=== PATIENT | female | born 1985 ===

== ENCOUNTER 2016-11-07 20:42 | Observation (INO) | payer MEDICAID ==
[~2016-11-07] VITALS: Ht 162.6 cm; Wt 110.0 kg
[2016-11-07 21:24] LABS: BASOPHILS 0.3 % (0.0-2.0); EOSINOPHILS 2.1 % (0-7); HEMATOCRIT 41.8 % (36.0-48.0); HEMOGLOBIN 14.1 g/dL (12-16); IMMATURE GRANULOCYTES 0.3 % (0-5); LYMPHOCYTES 34.8 % (15-50); MCH 29.4 pg (26.0-34.0); MCHC 33.7 g/dL (31.0-37.0); MCV 87.3 fL (80.0-100.0); MEAN PLATELET VOLUME 9.9 fL (7.4-10.4); MONOCYTES 5.2 % (2-11); NEUTROPHILS 57.3 % (40-80); PLATELET COUNT 341 10x3/uL (130-400); RBC 4.79 10x6/uL (4.00-5.40); RDW 14.2 % (11.5-14.5); WBC 14.7 10x3/uL (4.8-10.8)
[2016-11-07 21:36] LABS: ALBUMIN 3.7 g/dL (3.4-5.0); BILIRUBIN - TOTAL 0.15 mg/dL (0.2-1.3); CALCIUM 8.7 mg/dL (8.5-10.1); CARBON DIOXIDE 24.5 mmol/L (21.0-32.0); CREATININE - SERUM 1.1 mg/dL (0.6-1.3); POTASSIUM - SERUM 3.5 mmol/L (3.5-5.1); PROTEIN - SERUM 7.7 g/dL (6.4-8.2)
[2016-11-07 23:06] LABS: APPEARANCE CLEAR (CLEAR); BILIRUBIN NEGATIVE (NEGATIVE); COLOR STRAW (YELLOW); EPITHELIAL CELLS 0-5 /hpf (0-5); GLUCOSE 100 mg/dL (NEGATIVE); KETONE NEGATIVE (NEGATIVE); LEUKOCYTE ESTERASE TRACE (NEGATIVE); NITRITE NEGATIVE (NEGATIVE); PROTEIN NEGATIVE (NEGATIVE); RED CELLS - URINE OCC /hpf (0-5); UROBILINOGEN NORMAL (NORMAL)
[2016-11-07 23:07] LABS: HCG SERUM NEGATIVE (NEGATIVE)
[2016-11-07 23:07] LABS: BACTERIA FEW /hpf (NONE SEEN)
[2016-11-07 23:08] LABS: UDS - AMPHET NEGATIVE QUAL (NEGATIVE); UDS - BARB NEGATIVE QUAL (NEGATIVE); UDS - BENZO NEGATIVE QUAL (NEGATIVE); UDS - COCAINE NEGATIVE QUAL (NEGATIVE); UDS - METH NEGATIVE QUAL (NEGATIVE); UDS - OPIATE NEGATIVE QUAL (NEGATIVE); UDS - PCP NEGATIVE QUAL (NEGATIVE); UDS - THC NEGATIVE QUAL (NEGATIVE)
[2016-11-08] VITALS (25 sets, daily range): BP systolic 87–120; BP diastolic 52–80; Ht 162.6 cm; Wt 110.0 kg
[2016-11-08 02:02] LABS: CKMB 1.4 U/L (0.0-3.6); CREATINE KINASE 81 UL (21-215); TROPONIN-I < 0.017 ng/mL (0.000-0.060)
[2016-11-08] MEDS ORDERED: HYDROXYZINE HCL50 MG PO (03:49)
[2016-11-08] MEDS ORDERED: PAXIL40 MG PO (03:50)
[2016-11-08] MEDS ORDERED: AMBIEN10 MG PO (03:50)
--- NOTE | 2016-11-08 04:00 | NUR ---
0400: Pt states she and her boyfreind had a fight and she was suicidal at that time, but is not suicidal and does not want to harm herself or others at this time. Pt agrees to tell nurse/staff if this changes.
[2016-11-08 05:30] LABS: CKMB 1.4 U/L (0.0-3.6); CREATINE KINASE 81 UL (21-215)
[2016-11-08 05:37] LABS: TROPONIN-I < 0.017 ng/mL (0.000-0.060)
--- NOTE | 2016-11-08 06:00 | NUR ---
0600: Pt resting with eyes closed at this time. Pt is SB 55 bpm on CM with SBP 90's. Easily arousable to verbal and follows all commands. Pt is calm and cooperative.
--- NOTE | 2016-11-08 06:04 | NUR ---
0347: Pt rec'd from ER via STR and placed in room 2304. All monitors and alarms established.
--- NOTE | 2016-11-08 08:46 | NUR ---
UP IN BED AWAKE AT THIS TIME. NO ACUTE DISTRESS NOTED. PT DENIES ANY SUICIDAL IDEATION. PT TOILETS VIA BEDSIDE TOILET, INDEPENDENTLY. WILL CONTINUE PLAN OF CARE.
[2016-11-08 09:08] LABS: T4 THYROXINE 6.5 ug/dL (4.7-13.3); THYROID STIMULATING HORMONE 4.76 uIU/mL (0.36-3.74)
--- NOTE | 2016-11-08 11:07 | HP ---
PATIENT: DONY SEYMOUR MEDICAL RECORD: [id number] ACCOUNT: [id number] LOCATION:[facility] : 86 ADMISSION DATE: 11/08/16 HISTORY AND PHYSICAL EXAMINATION DATE OF ADMISSION: 11/08/2016 CHIEF COMPLAINT: Intentional overdose. HISTORY OF PRESENT ILLNESS: The patient is a 31-year-old obese female, who states that she and her boyfriend got into an argument yesterday, begun fighting. Apparently, the boyfriend left. The patient states she intentionally ingested approximately 39 hydroxyzine ____ mg once a day. Apparently, boyfriend called the patient's parents. The patient's parents called the EMS. The patient presented to the Emergency Room, it was felt the patient needed admission. PAST MEDICAL HISTORY: Significant that she has had history of depression, bipolar. Also, she is a . FAMILY HISTORY: The patient states that her mother had of ovarian cancer at 41. Father of flood. Siblings apparently are healthy. ALLERGIES: She has no known drug allergies. SOCIAL HISTORY: Apparently, [place] [facility] [place] is currently unemployed, apparently serving at [employer] for ____. 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 MEDICATIONS: Include Paxil 20 mg 1 p.o. q. day, hydroxyzine 50 mg t.i.d., Ambien 10 mg p.o. q.h.s. HABITS: The patient states she is a 1 pack per day smoker, occasional alcoholic beverage. REVIEW OF SYSTEMS: CONSTITUTIONAL: She denies any headaches, seizures, or syncope. Denies change in visual or auditory acuity. PULMONARY: She denies any shortness of breath, cough, congestion, history of TB, asthma or bronchitis. CARDIOVASCULAR: No chest pain, palpitation, PND or orthopnea. GASTROINTESTINAL: No chronic nausea, vomiting, melena or hematochezia. GENITOURINARY: No urgency, frequency, or dysuria. PHYSICAL EXAMINATION: GENERAL: The patient is a morbidly obese female, whose BMI is 34.3. VITAL SIGNS: In the Emergency Room, her temperature is 97, her pulse 107, respirations were 15 nonlabored, blood pressure 103/59. HEENT: Unremarkable. NECK: Supple. There is no adenopathy. HEART: Has a regular rhythm. No murmurs, gallops or rubs. LUNGS: Clear. ABDOMEN: Soft, bowel sounds positive. No organomegaly. ASSESSMENT: Intentional overdose, suicide attempt, history of depression, HISTORY AND PHYSICAL [id number] DONY SEYMOUR. PLAN: The patient is admitted to ICU. IV hydration. We will continue to monitor telemetry. The patient will need psychiatric consultation and will need inpatient psychiatric rehabilitation. TRANSINT:[id number] Voice Confirmation ID: [id number] DOCUMENT ID: [id number] SAEED NAIK MD at 1107 CC: [id number] DICTATION DATE: 11/08/16 0840 SIDE DOOR WORKER: 11/08/16 1024 ADM IN [place] [id number] [place] [id number]
[2016-11-08 11:37] LABS: CKMB 1.4 U/L (0.0-3.6); CREATINE KINASE 85 UL (21-215); TROPONIN-I < 0.017 ng/mL (0.000-0.060)
--- NOTE | 2016-11-08 12:56 | NUR ---
NOTED PT COMPLAINT OF HEADACHE AND REQUESTS SOMETHING FOR THE DISCOMFORT. CALLED DR NAIK OFFICE TO SEE IF CAN RECIEVE FURTHER ORDERS. OFFICE PAGED PHYSICIAN. WAITING FOR CALLBACK.
--- NOTE | 2016-11-08 13:33 | NUR ---
UP IN BED AT THIS TIME. NO ACUTE DISTRESS NOTED. PT ABLE TO STATE NEEDS. WILL CONTINUE PLAN OF CARE.
--- NOTE | 2016-11-08 14:08 | NUR ---
SPOKE WITH DR NAIK ABOUT PT COMPLAINT OF HEADACHE REQUESTING IUBPROFEIN. NOTED NEW ORDER OF TYLENOL 650MG Q4H PRN. WILL PLACE ORDERS.
--- NOTE | 2016-11-08 15:24 | NUR ---
LYING IN BED RESTING AT THIS TIME. RESPIRATIONS AT STEADY AND UNLABORED RATE. AWAKENS EASILY WHEN STAFF STATES PT NAME. NO ACUTE DISTRESS NOTED. WILL CONTINUE PLAN OF CARE.
--- NOTE | 2016-11-08 17:21 | NUR ---
UP IN BED EATING SUPPER AT THIS TIME. ALYSE ANY NEEDS. WILL CONTINUE PLAN OF CARE.
--- NOTE | 2016-11-08 19:24 | NUR ---
REPORT RECIEVED. ASSESSMENT COMPLETE PER FLOW SHEET. VSS. WILL CONTINUE TO MONITOR.
--- NOTE | 2016-11-08 21:16 | NUR ---
NO VISITORS AT THIS TIME. VSS. NO NEW CHANGES WILL CONTINUE TO MONITOR.
--- NOTE | 2016-11-08 23:21 | NUR ---
REPORT RECIEVED. ASSESSMENT COMPELTE EPR FLOW SHEET. VSS. NO NEW CHANGES. WILL CONTINUE TO MONITOR.
[2016-11-09] VITALS (9 sets, daily range): BP systolic 94–125; BP diastolic 53–82
--- NOTE | 2016-11-09 03:37 | NUR ---
REASSESSMENT COMPLETE PER FLOW SHEET. VSS. NO NEW CHANGES WILL CONTINUE TO MONITOR.
[2016-11-09 05:14] LABS: BASOPHILS 0.3 % (0.0-2.0); EOSINOPHILS 3.1 % (0-7); HEMATOCRIT 38.5 % (36.0-48.0); HEMOGLOBIN 12.8 g/dL (12-16); IMMATURE GRANULOCYTES 0.2 % (0-5); LYMPHOCYTES 41.8 % (15-50); MCH 29.2 pg (26.0-34.0); MCHC 33.2 g/dL (31.0-37.0); MCV 87.7 fL (80.0-100.0); MEAN PLATELET VOLUME 9.2 fL (7.4-10.4); NEUTROPHILS 47.6 % (40-80); RBC 4.39 10x6/uL (4.00-5.40); RDW 14.5 % (11.5-14.5)
[2016-11-09 05:17] LABS: PLATELET COUNT 271 10x3/uL (130-400); WBC 9.1 10x3/uL (4.8-10.8)
[2016-11-09 05:29] LABS: CALC OSMOLALITY 281 mosm/kg (275-300); CALCIUM 7.7 mg/dL (8.5-10.1); CHLORIDE - SERUM 110 mmol/L (98-107); CREATININE - SERUM 0.9 mg/dL (0.6-1.3); GLUCOSE 85 mg/dL (74-106); POTASSIUM - SERUM 3.8 mmol/L (3.5-5.1); SODIUM 143 mmol/L (136-145); UREA NITROGEN 8 mg/dL (7-18); eGFR NON AFRICAN AMERICAN 78 mL/min (90-120)
--- NOTE | 2016-11-09 07:35 | NUR ---
REPORT RECD PT CARE ASSUMED. PT IS ALERT AND ORIENTED X 4. S1S2 NOTED SR PER CM. LUNG SOUNDS CLR BILAT. SEE SHIFT ASSESSMENT FOR FURTHER DETAILS. PT PROVIDED WITH BREAKFAST TRAY, CAN FEED INDEPENDENTLY. VSS. WILL MONITOR.
--- NOTE | 2016-11-09 09:00 | NUR ---
PT RESTING IN BED AT THIS TIME. PT REQUEST DRINK. DRINK PROVIDED.
--- NOTE | 2016-11-09 12:00 | NUR ---
DR CUBA HERE TO SEE PT. STATES OK TO TRANSFER OUT.
--- NOTE | 2016-11-09 13:00 | NUR ---
PT REQUESTS FOR ME UNHOOK IV. I ASKED HER WHY. SHE STATES "BECAUSE IT IS ANNOYING ME." PT REQUEST DENIED AT THIS TIME.
--- NOTE | 2016-11-09 13:34 | NUR ---
CASE MANAGMENT BEDSIDE SPEAKING WITH PT.
--- NOTE | 2016-11-09 15:15 | NUR ---
Patient Name: DONY SEYMOUR Admission Status: ER Accout number: [id number] Admission Date: 11-08-2016 : 1985 Admission Diagnosis: Attending: JAYCEE Current LOS: 1 Anticipated DC Date: 11-09-2016 Planned Disposition: Inpatient Psych Facility [place] [employer] [place] Discharge Planning Comments: * Is the patient Alert and Oriented? Yes 0 * How many steps to enter\exit or inside your home? NONE 0 * PCP AT [facility] IN [place] 0 * Pharmacy [facility] IN [place] 0 * Preadmission Environment Home with Family 0 * ADLs Independent 0 * Equipment None 0 * Other Equipment NO MEDICAL EQUIPMENT PROVIDER PREFERENCE 0 * List name and contact numbers for known caregivers / representatives who currently or will assist patient after discharge: ADALBERTO PEREZ, 0 * Community resources currently utilized None 0 * Please name any agencies selected above. NONE 0 * Additional services required to return to the preadmission environment? No 0 * Can the patient safely return to the preadmission environment? No 0 * Has this patient been hospitalized within the prior 30 days at any hospital? No 0 CM RECEIVED ORDER FOR INPATIENT PSYCHIATRIC PLACEMENT. CM MET WITH PT IN ROOM TO DISCUSS DISCHARGE PLANNING AND NEEDS. PT REPORTED INITALLY SHE KNOWS WHY CM IS HERE AND SHE THINKS SHE MIGHT NEED TO BE PLACED AGAINST HER WILL. CM ASKED PT IF SHE HAS BEEN PLACED BEFORE, PT STATED THAT SHE WAS IN [facility] IN JUNE 2016 AND WAS THERE ON VOLUNTARY BASIS AFTER CUTTING HER WRISTS. PT DOES NOT KNOW THE DIFFERENCE BETWEEN VOLUNTARY AND INVOLUNTARY COMMMITMENT. CM EXPLAINED BOTH. PT REPORTS SHE WILL GO ON VOLUNTARY BASIS AND THINKS SHE MAY NEED HER MEDICATIONS ADJUSTED SHE KEEPS TRYING TO COMMIT SUICIDE. CM ASKED PT WHAT HAPPENED TO GET HER HERE. PT REPORTS SHE IS BROKE, UNEMPLOYED, HAS FAMILY STRESS WITH HER PARENTS AND IS NOT GETTING ALONG WITH HER BOYFRIEND. PT DID HAVE OUTPATIENT FOLLOW UP WITH A PLACE IN [facility] FOR PSYCHIATRIC CARE BUT HAS NOT BEEN IN A COUPLE OF MONTHS. 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 PT REPORTS LIVING AT HOME INDEPENDENTLY WITH HER BOYFRIEND. PT HAS NO MEDICAL EQUIPMENT AND NO OUTSIDE SERVICES ASSISTING IN THE HOME. CM DISCUSSED AVAILABILITY OF HOME HEALTH, REHAB SERVICES AND MEDICAL EQUIPMENT. PT DENIES NEEDING MEDICAL EQUIPMENT, REHAB SERVICES OR HOME HEALTH. PT REPORTS HER BOYFRIEND WILL PICK HER UP FOR DISCHARGE HOME. PT LIVES AT [address] [place] [address]. [id number], HER PHONE IS [phone]. PT'S BOYFRIEND IS WILL ADELA, . PT REQUESTED PLACEMENT AT [facility] OR [facility]. CM CALLED [facility], , SPOKE TO JANNET AND PROVIDED REFERRAL INFORMATION. JANNET ASKED REFERRAL BE FAXED AND SHE WILL CALL CM LATER WITH BED AVAILABILITY AND IF THE DOCTOR WILL ACCEPT. CM FAXED REFERRAL TO [facility] AT [phone]. CM WAITING ADMISSION DETERMINATION FROM [facility] FOR INPATIENT PSYCHIATRIC CARE. Civil Preparedness Officer: Rasheed Hurst
[2016-11-09] MEDS ORDERED: FLAGYL500 MG PO (16:49)
--- NOTE | 2016-11-09 16:52 | NUR ---
PT ACCEPTED TO [facility], REPORT CALLED TO ZORAIDA GUILLEN.
--- NOTE | 2016-11-09 17:10 | NUR ---
Patient Name: DONY SEYMOUR Encounter No: [id number] : 1985 Primary Insurance: [place] [employer] [place] Anticipated DC Date: 11-09-2016 Planned Disposition: Inpatient Psych Facility External Planned Provider: [facility] DCP follow-up note: CM RECEIVED CALL FROM JANNET [facility] REQUESTING RETURN CALL. CM CALLED [facility], , SPOKE TO DONY WHO REPORTS THAT PT HAS BEEN ACCEPTED BY DR. BELTRE. CM NOTIFIED PT IN ROOM WELL BEDSIDE NURSE. NURSE REPORT TO BE CALLED TO [facility], . PT TO TRANSPORT VIA AMBULANCE. Rasheed Hurst, CASE MANAGEMENT
--- NOTE | 2016-11-10 11:40 | CN ---
PATIENT NAME:DONY SEYMOUR MEDICAL RECORD: [id number] : [birth year] LOCATION:[facility]4 ADMIT DATE: 11/08/16 ACCOUNT: [id number] CONSULTING PHYSICIAN: MITCH CUBA III, MD REFERRING PHYSICIAN: ELTON LARSEN DO DATE OF CONSULTATION: 11/09/2016 Psychiatric consultation FINDINGS: A 31-year-old white female, who was admitted to the hospital on the . The patient took an intentional overdose of hydroxyzine. This occurred subsequent to an argument that she had had with her boyfriend. The patient has a past history of bipolar disorder and is currently depressed. It does not know whether she is actually under the treatment of a psychiatrist. CURRENT MEDICATION: Included Paxil 20 mg daily, hydroxyzine 50 mg 3 times a day and Ambien 10 mg at bedtime. SOCIAL HISTORY: The patient has undergone recent stress worse. There has been family discord. Patient's mother sometime ago as well as her father. The patient does not have a significant number of comorbidities, but she is morbidly obese. On exam, mood is dysphoric. Affect is somewhat brittle. Speech is fairly fluent. Content of thought is positive for recent suicidal ideation. Sensorium is relatively clear. DIAGNOSTIC IMPRESSION: AXIS I: Bipolar, depressed phase. PLAN: 1. I would recommend inpatient psychiatric treatment for safety of the patient. 2. Continue antidepressants. TRANSINT:[id number] Voice Confirmation ID: [id number] DOCUMENT ID: [id number] MITCH CUBA III, MD at 1140 CC: [id number] DICTATION DATE: 11/09/16 1156 PHYSICIAN CODER: 11/09/16 1409 DIS IN 11/09/16 [facility] [address] [place] [address]
--- NOTE | 2016-12-20 08:20 | DS ---
PATIENT:DONY SEYMOUR :[birth year] MEDICAL RECORD: [id number] DISCHARGE SUMMARY ADMISSION DATE: 11/08/16 DISCHARGE DATE: 11/09/16 DATE OF ADMISSION: 11/08/2016 DATE OF DISCHARGE: 11/09/2016 CONDITION ON DISCHARGE: Improved. ADMITTING DIAGNOSES: Intentional overdose, suicide attempt. DISCHARGE DIAGNOSES: Suicide attempt, morbid obesity, bipolar, tobacco use. HOSPITAL COURSE: The patient is a 31-year-old obese female, who states her and her boyfriend got ____ argument, started fighting, apparently her boyfriend had left. She initially took 39 hydroxyzine 25 mg at once. She presented to the Emergency Room. OBJECTIVE: VITAL SIGNS: In the Emergency Room, the patient was morbidly obese. BMI was 34.3 She was afebrile, pulse 107, respirations were 15 nonlabored, and blood pressure 103/59. HEENT: Unremarkable. NECK: Supple. There is no adenopathy. HEART: Had regular rhythm. No murmurs, gallops or rubs. LUNGS: Clear. The patient was admitted to the ICU. She was seen in consultation by Dr. Sheldon, psychiatrist, who had recommended the patient to have inpatient psychiatric treatment. On the , the patient was resting comfortably. manager cost did arrange for the patient to have inpatient psychiatric discharge. The patient was admitted to psychiatric hospital unit. Her medication included Flagyl 500 mg p.o. q.8 hours. TRANSINT:[id number] Voice Confirmation ID: [id number] DOCUMENT ID: [id number] SAEED NAIK MD at 0820 CC: [id number] DICTATION DATE: 12/19/16 1521 CLIENT DELIVERY MANAGER: 12/19/16 2307 DIS IN 11/09/16 [facility] [address] [place] [address]
== END 2016-11-09 18:36 | disposition short-term general hospital (02) ==
LOC: D.ER 20:42 → D.ICU 11-08 02:27 → OBSVTIME 11-08 09:02 → D.ICU 11-09 18:36
PROVIDERS: Family Medicine; Surgery; ADMIT Family Medicine
DX: T43.592A Poisoning by other antipsychotics and neuroleptics, intentional self-harm, initial encounter (principal); E66.9 Obesity, unspecified; Z68.41 Body mass index [BMI] 40.0-44.9, adult; F31.30 Bipolar disorder, current episode depressed, mild or moderate severity, unspecified; Z72.0 Tobacco use